=== PATIENT | male | born 1975 | race Caucasian/White ===

== ENCOUNTER → 2016-12-26 | Outpatient (CLI) | payer OTHER ==
[~2016-12-26] VITALS: Ht 172.7 cm; Wt 85.6 kg
[~2016-12-26] MED LIST: ASPIRIN 32325 MG/TAB PO; ATIVAN 1MG T1 MG/TAB PO; MELAT3MGTAB PO; MOTRIN 600600 MG/TAB PO; NEXIUM 40MG40 MG PO; NORCO 325 MG-51 TAB PO; PREDNISONE20 MG PO; SONATA5 MG PO; ZOLOFT 100MG100 MG PO
[2016-12-26 08:55] VITALS: BP 142/89; PULSE 70
[2016-12-26 10:00] VITALS: BP 144/94; PULSE 68
== END ==
LOC: COL.RAD 12-23 09:15
DX: C91.10 Chronic lymphocytic leukemia of B-cell type not having achieved remission (principal); R59.0 Localized enlarged lymph nodes
CPT/HCPCS: 25581

== ENCOUNTER 2017-01-20 13:08 | Outpatient (CLI) | payer OTHER ==
[~2017-01-20] VITALS: Ht 172.7 cm; Wt 83.0 kg
[2017-01-20] VITALS (7 sets, daily range): BP systolic 117–151; BP diastolic 80–96; PULSE 72–92; TEMP 97.6
[~2017-01-20 13:08] MED LIST changes: -ATIVAN 1MG T1 MG/TAB PO; -NORCO 325 MG-51 TAB PO; -PREDNISONE20 MG PO
[2017-01-20] MEDS ORDERED: ATIVAN 1MG T1 MG/TAB PO (13:21)
[2017-01-20 18:23] LABS: CEREBROSPINAL TUBE #2
[2017-01-20 18:24] LABS: CSF APPEARANCE CLEAR; CSF COLOR COLORLESS
== END 2017-01-20 15:51 | disposition home or self-care (01) ==
LOC: COL.RAD 13:08
PROVIDERS: Internal Medicine
DX: C91.10 Chronic lymphocytic leukemia of B-cell type not having achieved remission (principal)
CPT/HCPCS: J1720; J9260; Q9965

== ENCOUNTER 2017-01-23 12:31 | Outpatient (CLI) | payer OTHER ==
[~2017-01-23] VITALS: Ht 172.7 cm; Wt 84.8 kg
[~2017-01-23 12:31] MED LIST changes: +ATIVAN 1MG T1 MG/TAB PO
[2017-01-23] MEDS ORDERED: PREDNISONE20 MG PO (12:42)
[2017-01-23 12:46] VITALS: BP 127/95; PULSE 84
[2017-01-23 13:41] VITALS: BP 122/86; PULSE 76
[2017-01-23 13:46] VITALS: BP 122/86; PULSE 69
[2017-01-23 14:00] VITALS: BP 120/85; PULSE 73
[2017-01-23 14:15] VITALS: BP 116/81; PULSE 71
[2017-01-23 14:45] VITALS: BP 126/85; PULSE 72
[2017-01-23 15:40] LABS: CEREBROSPINAL TUBE #2; CSF APPEARANCE CLEAR; CSF COLOR COLORLESS
== END 2017-01-23 15:02 | disposition home or self-care (01) ==
LOC: COL.RAD 12:31
PROVIDERS: Internal Medicine
DX: C91.10 Chronic lymphocytic leukemia of B-cell type not having achieved remission (principal)
CPT/HCPCS: J1720; J9260; Q9965

== ENCOUNTER 2017-01-27 13:42 | Outpatient (CLI) | payer OTHER ==
[~2017-01-27] VITALS: Ht 172.7 cm; Wt 84.9 kg
[~2017-01-27 13:42] MED LIST changes: +PREDNISONE20 MG PO
[2017-01-27 13:57] VITALS: BP 124/93; PULSE 82
[2017-01-27] MEDS ORDERED: NORCO 325 MG-51 TAB PO (13:57)
[2017-01-27 14:45] VITALS: BP 135/82; PULSE 79
[2017-01-27 14:46] VITALS: BP 123/92; PULSE 80
[2017-01-27 15:05] VITALS: BP 120/83; PULSE 80
[2017-01-27 15:20] VITALS: BP 126/92; PULSE 76
[2017-01-27 15:35] VITALS: BP 121/87; PULSE 82
[2017-01-27 16:55] LABS: CEREBROSPINAL TUBE #3; CSF APPEARANCE CLEAR; CSF COLOR COLORLESS
== END 2017-01-27 16:21 | disposition home or self-care (01) ==
LOC: COL.RAD 13:42
PROVIDERS: Internal Medicine
DX: C91.10 Chronic lymphocytic leukemia of B-cell type not having achieved remission (principal)
CPT/HCPCS: J1720; J9260; Q9965

== ENCOUNTER 2017-01-30 13:36 | Outpatient (CLI) | payer OTHER ==
[~2017-01-30] VITALS: Ht 172.7 cm; Wt 86.1 kg
[~2017-01-30 13:36] MED LIST changes: +NORCO 325 MG-51 TAB PO
[2017-01-30 13:51] VITALS: BP 145/89; PULSE 81
[2017-01-30 15:10] VITALS: BP 129/92; PULSE 79
[2017-01-30 15:30] VITALS: BP 129/92; PULSE 73
[2017-01-30 16:10] VITALS: BP 117/88; PULSE 78
[2017-01-30 17:36] LABS: CEREBROSPINAL TUBE #3; CSF APPEARANCE CLEAR; CSF COLOR COLORLESS; CSF POLYMORPHONUCLEAR 5 % (0-6)
== END 2017-01-30 16:34 | disposition home or self-care (01) ==
LOC: COL.RAD 13:36
PROVIDERS: Internal Medicine
DX: C91.10 Chronic lymphocytic leukemia of B-cell type not having achieved remission (principal)
CPT/HCPCS: J1720; J9260; Q9965

== ENCOUNTER 2017-02-03 10:11 | Outpatient (CLI) | payer OTHER ==
[2017-02-03] VITALS (7 sets, daily range): BP systolic 116–119; BP diastolic 75–91; PULSE 63–92; TEMP 98.5
[~2017-02-03] VITALS: Ht 172.7 cm; Wt 84.2 kg
[2017-02-03 12:28] LABS: CEREBROSPINAL TUBE #3; CSF APPEARANCE CLEAR; CSF COLOR COLORLESS
== END 2017-02-03 15:08 | disposition home or self-care (01) ==
LOC: COL.RAD 10:11
PROVIDERS: Internal Medicine
DX: C91.10 Chronic lymphocytic leukemia of B-cell type not having achieved remission (principal)
CPT/HCPCS: J1720; J9260; Q9965

== ENCOUNTER 2017-02-06 13:16 | Outpatient (CLI) | payer OTHER ==
[~2017-02-06] VITALS: Ht 172.7 cm; Wt 83.6 kg
[2017-02-06] VITALS (7 sets, daily range): BP systolic 113–123; BP diastolic 81–90; PULSE 80–89
[2017-02-06 16:46] LABS: CEREBROSPINAL TUBE #2; CSF APPEARANCE CLEAR; CSF COLOR COLORLESS
== END 2017-02-06 17:26 | disposition home or self-care (01) ==
LOC: COL.RAD 13:16
PROVIDERS: Internal Medicine
DX: C91.10 Chronic lymphocytic leukemia of B-cell type not having achieved remission (principal)
CPT/HCPCS: J1720; J9260; Q9965

== ENCOUNTER 2017-02-10 08:00 | Outpatient (CLI) | payer OTHER ==
[~2017-02-10] VITALS: Ht 172.7 cm; Wt 85.3 kg
[2017-02-10 08:17] VITALS: BP 137/97; PULSE 79
[2017-02-10 10:00] VITALS: BP 121/85; PULSE 76
[2017-02-10 10:15] VITALS: BP 125/91; PULSE 79; TEMP 98.6
[2017-02-10 10:30] VITALS: BP 115/91; PULSE 80
[2017-02-10 10:45] VITALS: BP 120/90; PULSE 80
[2017-02-10 11:00] VITALS: BP 137/92; PULSE 98
[2017-02-10 12:06] LABS: CEREBROSPINAL TUBE #2; CSF APPEARANCE CLEAR; CSF COLOR COLORLESS
== END 2017-02-10 11:35 | disposition home or self-care (01) ==
LOC: COL.RAD 08:00
PROVIDERS: Internal Medicine Medical Oncology
DX: C91.10 Chronic lymphocytic leukemia of B-cell type not having achieved remission (principal)
CPT/HCPCS: J1720; J9260; Q9965

== ENCOUNTER 2017-02-13 06:57 | Outpatient (CLI) | payer OTHER ==
[~2017-02-13] VITALS: Ht 172.7 cm; Wt 84.5 kg
[2017-02-13 07:06] VITALS: BP 131/98; PULSE 72
[2017-02-13 08:10] VITALS: BP 123/94; PULSE 68; PULSE 71
[2017-02-13 08:25] VITALS: BP 117/87; PULSE 70
[2017-02-13 08:40] VITALS: BP 121/80; PULSE 67
[2017-02-13 08:55] VITALS: BP 119/80; PULSE 77
[2017-02-13 09:10] VITALS: BP 123/83; PULSE 76
[2017-02-13 09:26] LABS: CEREBROSPINAL TUBE #2; CSF APPEARANCE CLEAR; CSF COLOR COLORLESS
== END 2017-02-16 08:52 | disposition home or self-care (01) ==
LOC: COL.RAD 06:57
PROVIDERS: Internal Medicine Medical Oncology
DX: C91.10 Chronic lymphocytic leukemia of B-cell type not having achieved remission (principal)
CPT/HCPCS: J1720; J9260; Q9965

== ENCOUNTER 2017-02-20 12:57 | Outpatient (CLI) | payer OTHER ==
[~2017-02-20] VITALS: Ht 172.7 cm; Wt 84.1 kg
[2017-02-20 13:21] VITALS: BP 117/86; PULSE 93
[2017-02-20 14:30] VITALS: BP 111/81; PULSE 79
[2017-02-20 14:32] VITALS: BP 111/81; PULSE 75
[2017-02-20 14:44] LABS: CEREBROSPINAL TUBE #1; CSF APPEARANCE CLOUDY; CSF COLOR RED
[2017-02-20 14:50] VITALS: BP 114/79; PULSE 82
[2017-02-20 15:05] VITALS: BP 110/81; PULSE 80
[2017-02-20 15:25] VITALS: BP 117/82; PULSE 85
== END 2017-02-20 15:37 | disposition home or self-care (01) ==
LOC: COL.RAD 12:57
PROVIDERS: Internal Medicine
DX: C91.10 Chronic lymphocytic leukemia of B-cell type not having achieved remission (principal)
CPT/HCPCS: J1720; J9260; Q9965

== ENCOUNTER 2017-02-27 12:40 | Outpatient (CLI) | payer OTHER ==
[~2017-02-27] VITALS: Ht 172.7 cm; Wt 83.9 kg
[2017-02-27] VITALS (7 sets, daily range): BP systolic 103–126; BP diastolic 69–84; PULSE 77–88
[2017-02-27 14:54] LABS: CEREBROSPINAL TUBE #2; CSF APPEARANCE CLEAR; CSF COLOR COLORLESS
[2017-02-27 15:05] LABS: CSF POLYMORPHONUCLEAR 0 % (0-6)
== END 2017-02-27 15:32 | disposition home or self-care (01) ==
LOC: COL.RAD 12:40
PROVIDERS: Internal Medicine
DX: C91.10 Chronic lymphocytic leukemia of B-cell type not having achieved remission (principal)
CPT/HCPCS: J1720; J9260; Q9965

== ENCOUNTER 2017-03-06 12:54 | Outpatient (CLI) | payer OTHER ==
[~2017-03-06] VITALS: Ht 172.7 cm; Wt 83.5 kg
[2017-03-06] VITALS (8 sets, daily range): BP systolic 107–117; BP diastolic 75–83; PULSE 70–81; TEMP 98.3
[2017-03-06] MEDS ORDERED: PREDNISONE 5MG5 MG PO (13:09)
[2017-03-06] MEDS ORDERED: LEVAQUIN 5500 MG/TA1 PO (13:11)
[2017-03-06 16:35] LABS: CEREBROSPINAL TUBE #3; CSF APPEARANCE CLEAR; CSF COLOR COLORLESS
[2017-03-06 16:52] LABS: CSF POLYMORPHONUCLEAR 3 % (0-6)
== END 2017-03-06 15:37 | disposition home or self-care (01) ==
LOC: COL.RAD 12:54
PROVIDERS: Internal Medicine
DX: C91.10 Chronic lymphocytic leukemia of B-cell type not having achieved remission (principal)
CPT/HCPCS: J1720; J9260

== ENCOUNTER 2017-03-13 13:15 | Outpatient (CLI) | payer OTHER ==
[~2017-03-13] VITALS: Ht 172.7 cm; Wt 86.4 kg
[~2017-03-13 13:15] MED LIST changes: +LEVAQUIN 5500 MG/TA1 PO; +PREDNISONE 5MG5 MG PO
[2017-03-13] MEDS ORDERED: CLARITIN 1010 MG/TAB PO (13:24)
[2017-03-13 13:27] VITALS: BP 113/83; PULSE 83
[2017-03-13 14:35] VITALS: BP 114/79; PULSE 68; PULSE 71
[2017-03-13 14:50] VITALS: BP 110/74; PULSE 79
[2017-03-13 15:05] VITALS: BP 120/83; PULSE 78
[2017-03-13 15:35] VITALS: BP 121/79; PULSE 78
[2017-03-13 16:18] LABS: CEREBROSPINAL TUBE #4; CSF COLOR COLORLESS
[2017-03-13 16:19] LABS: CSF APPEARANCE CLEAR; CSF POLYMORPHONUCLEAR 4 % (0-6)
== END 2017-03-13 15:40 | disposition home or self-care (01) ==
LOC: COL.RAD 13:15
PROVIDERS: Internal Medicine
DX: Z51.11 Encounter for antineoplastic chemotherapy (principal); C91.10 Chronic lymphocytic leukemia of B-cell type not having achieved remission
CPT/HCPCS: J1720; J9260; Q9965

== ENCOUNTER 2017-03-27 08:30 | Outpatient (CLI) | payer OTHER ==
[~2017-03-27] VITALS: Ht 172.7 cm; Wt 84.8 kg
[2017-03-27] VITALS (11 sets, daily range): BP systolic 102–127; BP diastolic 64–83; PULSE 54–88
[~2017-03-27 08:30] MED LIST changes: +CLARITIN 1010 MG/TAB PO
[2017-03-27 13:11] LABS: CEREBROSPINAL TUBE #1; CSF APPEARANCE CLEAR; CSF COLOR COLORLESS; CSF POLYMORPHONUCLEAR 11 % (0-6)
== END 2017-03-27 12:38 | disposition home or self-care (01) ==
LOC: COL.RAD 08:30
PROVIDERS: Internal Medicine
DX: Z85.6 Personal history of leukemia (principal); R51 Headache
CPT/HCPCS: A9585; J1720; J9260; Q9965

== ENCOUNTER 2017-06-16 08:58 | Outpatient (CLI) | payer OTHER ==
[~2017-06-16] VITALS: Ht 172.7 cm; Wt 97.8 kg
[2017-06-16] MEDS ORDERED: IMBRUVICA PO (09:12)
[2017-06-16 09:15] VITALS: BP 127/86; PULSE 64
[2017-06-16 10:30] VITALS: BP 122/79; PULSE 62
[2017-06-16 12:07] LABS: CSF APPEARANCE CLEAR; CSF COLOR COLORLESS; CSF MONONUCLEAR 100 % (70-100); CSF POLYMORPHONUCLEAR 0 % (0-6); CSF RBC 6 /mm3 (0-0)
[2017-06-16 12:08] LABS: GLUCOSE,CSF 45 mg/dL (40-70); TOTAL PROTEIN,CSF 69 mg/dL (15-45)
== END 2017-06-16 11:37 | disposition home or self-care (01) ==
LOC: COL.RAD 08:58
PROVIDERS: Internal Medicine
DX: C91.10 Chronic lymphocytic leukemia of B-cell type not having achieved remission (principal)